=== PATIENT | male | born 1965 | race Caucasian/White ===

== ENCOUNTER 2023-12-31 06:56 | Emergency (ER) | payer MEDICARE ==
[~2023-12-31] VITALS: Ht 182.8 cm; Wt 136.1 kg
[2023-12-31] MEDS ORDERED: LISINOPRIL-HCT1 EACH PO (07:24)
[2023-12-31] MEDS ORDERED: ROSUVASTATIN CA10 MG PO (07:24)
[2023-12-31] MEDS ORDERED: FENOFIBRATE MI200 MG PO (07:25)
[2023-12-31] MEDS ORDERED: Tdap Vaccine 0.5 ML SYR (Adult Vaccine) IM ONE (07:35)
[2023-12-31] MEDS ORDERED: CEPHALEXIN500 M1 PO (07:41)
== END 2023-12-31 08:46 | disposition home or self-care (01) ==
LOC: ED 06:56
DX: S81.012A Laceration without foreign body, left knee, initial encounter (principal); I10 Essential (primary) hypertension; E78.5 Hyperlipidemia, unspecified; W01.0XXA Fall on same level from slipping, tripping and stumbling without subsequent striking against object, initial encounter; Y93.89 Activity, other specified; Y92.89 Other specified places as the place of occurrence of the external cause; Y99.8 Other external cause status